=== PATIENT | male | born 1965 | race Caucasian/White ===

== ENCOUNTER 2019-07-25 19:06 | Emergency (ER) | payer OTHER ==
[~2019-07-25] VITALS: Ht 182.9 cm; Wt 86.2 kg
--- OUTSIDE RECORDS SUMMARY | 2019-07-25 19:08 | XMS REPORT ---
Author Author [facility] Address Unknown Phone Unavailable Care Team Providers Care Hoist Worker Name Role Phone Unavailable Unavailable Problems This patient has no known problems. Allergies, Adverse Reactions, Alerts This patient has no known allergies or adverse reactions. Medications This patient has no known medications. Encounters Start Date/Time End Date/Time Encounter Type Admission Type Attending [facility] Facility Care Department Encounter ID 2019-06-20 12:59:00 2019-06-20 12:59:00 Emergency E [facility] [id number] 2019-01-14 02:48:00 2019-01-14 02:48:00 Emergency E [facility] [id number]
== END 2019-07-25 19:50 | disposition home or self-care (01) ==
LOC: ER 19:06
DX: L02.414 Cutaneous abscess of left upper limb (principal)
CPT/HCPCS: 99282

== ENCOUNTER 2020-01-31 23:44 | Emergency (ER) | payer OTHER ==
[~2020-01-31] VITALS: Ht 182.9 cm; Wt 86.2 kg
--- OUTSIDE RECORDS SUMMARY | 2020-01-31 23:47 | XMS REPORT ---
Author Author [facility] Address [address] [place] [address] Phone Unavailable Care Team Providers Care Orientation And Mobility Instructor Name Role Phone NO, PCP PCP Unavailable Problems This patient has no known problems. Allergies, Adverse Reactions, Alerts This patient has no known allergies or adverse reactions. Medications This patient has no known medications. Procedures This patient has no known procedures. Encounters Start Date/Time End Date/Time Encounter Type Admission Type Attendi [facility] Care Department Encounter ID Source 2019-07-25 19:06:00 2019-07-25 19:50:00 Departed Emergency Room [facility] [id number] [facility] Results This patient has no known results.
[2020-02-01] VITALS: BP 139/86
--- NOTE | 2020-02-01 00:04 | Emergency Department Note ---
History of Present Illnes History of Present Illness Chief Complaint: Skin Rash or Abscess History of Present Illness This is a 54 year old male with c/o 3 infected insect bites, all three started about 10 days ago, denies fever, chills . Historian: Patient Arrival Mode: Car Onset (how long ago): day(s) (10) Location: left forearm, right forearm, and right upper thigh Quality: painful lesions as described above Severity: mild Onset quality: gradual Duration (how long): day(s) (10) Timing of current episode: constant Progression: worsening Chronicity: new Context: other (states all three started as insect bites) Relieving factors: none Exacerbating factors: none Associated symptoms: denies other symptoms Treatments prior to arrival: none Past Medical/Family History Physician Review I have reviewed the patient's past medical and family history. Any updates have been documented here. Past Medical History Recent Fever: No Clinical Suspicion of Infectio: No New/Unexplained Change in Ment: No Past Medical History: Hypertension, Other Mental Illness, Chronic Back Pain Other Medical History: PTSD SLEEP APNEA Other Surgery: LEFT FOOT SX LEFT LEG SX Social History Smoking Cessation: Current every day smoker Counseling Performed: Yes Alcohol Use: Occasional Any Illegal Drug Use: No Other Last Tetanus: UTD Review of Systems Review of Systems Constitutional: no symptoms EENTM: no symptoms Cardiovascular: no symptoms Respiratory: no symptoms Gastrointestinal: no symptoms Genitourinary: no symptoms Musculoskeletal: no symptoms Neurological: no symptoms Psychological: no symptoms Endocrine: no symptoms Hematological/Lymphatic: no symptoms Review of other systems All other systems reviewed and negative. Physical Exam Related Data Allergies: Coded Allergies: No Known Allergies (Unverified , 07/25/19) Triage Vital Signs Vital Signs Date Time Temp Pulse Resp B/P (MAP) Pulse Ox O2 Delivery O2 Flow Rate FiO2 01/31/20 23:50 98.4 89 16 139/86 97 Vital signs reviewed: Yes Physical Exam CONSTITUTIONAL Constitutional: well-developed, well-nourished HENT HENT: normocephalic, atraumatic, oropharynx clear/moist, nose normal HENT L/R: left ext ear normal, right ext ear normal EYES Eyes: PERRL, conjunctivae normal NECK Neck: ROM normal PULMONARY Pulmonary: effort normal, breath sounds normal CARDIOVASCULAR Cardiovascular: regular rhythm, heart sounds normal, capillary refill normal, normal rate GASTROINTESTINAL Abdominal: soft, nontender, bowel sounds normal GENITOURINARY Genitourinary: exam deferred SKIN Skin: warm, dry, lesion (pt with small abscess to left forearm, right forearm, and right upper thigh, no fluctuance or tenting to any of the three, no drainable fluid collection to any of the three) MUSCULOSKELETAL Musculoskeletal: ROM normal NEUROLOGICAL Neurological: alert, oriented x 3, no gross motor or sensory deficits PSYCHOLOGICAL Psychological: mood/affect normal, judgement normal Critical Care Time Subsequent provider I assumed direction of critical care for this patient from another provider of my specialty. Assessment & Plan Assessment & Plan Problems: (1) Abscess of left forearm (2) Abscess of right forearm (3) Abscess of right thigh Assessment & Plan pt with three abscess/infected insect bites, one to left forearm, one to right forearm, one to right thigh, no fluctuance or drainable fluid collection to any of the three pt discharged with the following prescriptions doxycycline 100 mg po bid for 14 days bactroban ointment apply bid pt instructed on warm compresses 4 to5 times a day to affected areas. Depart Disposition: HOME, SELF-CARE Last Vital Signs Date Time Temp Pulse Resp B/P (MAP) Pulse Ox O2 Delivery O2 Flow Rate FiO2 01/31/20 23:50 98.4 89 16 139/86 97 MARYJO BOBBY MD February 01, 2020 00:04
== END 2020-02-01 00:05 | disposition home or self-care (01) ==
LOC: ER 23:44
DX: L02.414 Cutaneous abscess of left upper limb (principal); L02.413 Cutaneous abscess of right upper limb; L02.415 Cutaneous abscess of right lower limb; W57.XXXA Bitten or stung by nonvenomous insect and other nonvenomous arthropods, initial encounter; I10 Essential (primary) hypertension; F43.10 Post-traumatic stress disorder, unspecified; M54.9 Dorsalgia, unspecified; G89.29 Other chronic pain; F17.210 Nicotine dependence, cigarettes, uncomplicated
CPT/HCPCS: 99282

== ENCOUNTER 2020-12-25 15:38 | Emergency (ER) | payer OTHER ==
[~2020-12-25] VITALS: Ht 182.9 cm; Wt 86.2 kg
[2020-12-25] MEDS ORDERED: DOXYCYCLINE HY100 MG PO (16:18)
== END 2020-12-25 16:33 | disposition home or self-care (01) ==
LOC: ER 16:20
DX: L02.211 Cutaneous abscess of abdominal wall (principal); N49.2 Inflammatory disorders of scrotum; I10 Essential (primary) hypertension; F41.9 Anxiety disorder, unspecified; F43.10 Post-traumatic stress disorder, unspecified; G47.30 Sleep apnea, unspecified
CPT/HCPCS: 99283

== ENCOUNTER 2023-01-25 06:23 | Emergency (ER) | payer OTHER ==
[~2023-01-25] VITALS: Ht 182.9 cm; Wt 86.2 kg
[~2023-01-25 06:23] MED LIST: DOXYCYCLINE HY100 MG PO
[2023-01-25 06:30] VITALS: O2SAT 100
[2023-01-25] MEDS ORDERED: TETANUS/DIPHTHERIA TOX ADULT 0.5 ML SYR ONE (06:33)
[2023-01-25] MEDS ORDERED: BACTRIM DS TAB1 EACH PO (06:35)
[2023-01-25] MEDS ORDERED: TETANUS/DIPHTHERIA TOX ADULT 0.5 ML SYR IM ONE (06:45)
== END 2023-01-25 07:01 | disposition home or self-care (01) ==
LOC: ER 06:27
DX: L02.415 Cutaneous abscess of right lower limb (principal); I10 Essential (primary) hypertension; F41.9 Anxiety disorder, unspecified; F43.10 Post-traumatic stress disorder, unspecified; G47.30 Sleep apnea, unspecified; M54.9 Dorsalgia, unspecified; G89.29 Other chronic pain
CPT/HCPCS: 90471; 90714; 99282